=== PATIENT | male | born 1980 | race Caucasian/White ===

== ENCOUNTER 2019-02-04 08:39 | Day surgery (SDC) | payer OTHER ==
[~2019-02-04] VITALS: Ht 180.3 cm; Wt 88.5 kg
[2019-02-04 08:54] VITALS: BP 129/91; PULSE 80; TEMP 98
[2019-02-04] MEDS ORDERED: PENTASA250 MG PO (09:25)
[2019-02-04] MEDS ORDERED: TYLENOL 500MG500 MG PO (09:26)
[2019-02-04 10:28] VITALS: BP 107/77; PULSE 71; TEMP 97.9
--- NOTE | 2019-02-04 10:28 | NUR ---
Patient brought back to [facility]. Alert and oriented. Vital signs obtained, WNL. States he would like soda and crackers at this time. and kids at bedside. Denies any pain or nausea. Call rios within reach, will conitnue to monitor.
[2019-02-04 10:43] VITALS: BP 114/79; PULSE 74
[2019-02-04 10:58] VITALS: BP 117/78; PULSE 65
--- NOTE | 2019-02-04 11:10 | NUR ---
Patient brought down to lobby via wheelchair. to drive patient home.
--- NOTE | 2019-02-04 11:16 | NUR ---
Patient states he is ready to go home. Denies any nausea or pain. Vital signs stable. Tolerated food and drink well. Discharge instructions reviewed with patient and , all questions answered.
== END 2019-02-04 11:10 | disposition home or self-care (01) ==
LOC: SDCO 08:39
DX: K56.600 Partial intestinal obstruction, unspecified as to cause (principal); K52.9 Noninfective gastroenteritis and colitis, unspecified; K50.80 Crohn's disease of both small and large intestine without complications
CPT/HCPCS: J2250; J3010; J7030

== ENCOUNTER → 2019-02-21 | Outpatient (CLI) | payer OTHER ==
[~2019-02-21] MED LIST: PENTASA250 MG PO; TYLENOL 500MG500 MG PO
== END ==
LOC: COL.RAD 07:43
DX: K92.89 Other specified diseases of the digestive system (principal); K50.90 Crohn's disease, unspecified, without complications
CPT/HCPCS: A9585

== ENCOUNTER 2019-08-26 09:30 | Day surgery (SDC) | payer OTHER ==
[~2019-08-26] VITALS: Ht 180.3 cm; Wt 89.7 kg
[2019-08-26 10:08] VITALS: BP 117/84; PULSE 61; TEMP 98
[2019-08-26] MEDS ORDERED: HUMIRA40 MG/0.4 SQ (10:10)
[2019-08-26] MEDS ORDERED: PENTASA500 MG PO (10:10)
[2019-08-26 11:35] VITALS: BP 106/76; PULSE 58; TEMP 97.8
--- NOTE | 2019-08-26 11:35 | NUR ---
TO RM 5 PER CART FROM ENDOSCOPY. ALERT ORIENTED X3, TALKING TO AND STAFF. AMBULATED TO RECLINER WITH ASSIST AND TOLERATED WELL.
[2019-08-26 11:50] VITALS: BP 105/75; PULSE 64
--- NOTE | 2019-08-26 11:50 | NUR ---
RECEIVED APPLE JUICE.
[2019-08-26 12:05] VITALS: BP 112/77; PULSE 58
--- NOTE | 2019-08-26 12:05 | NUR ---
DISCONTINUED IV AND INT- CATHETER INTACT PATIENT GETTING DRESSED AND WAITING FOR DR LAROSE
--- NOTE | 2019-08-26 12:40 | NUR ---
DR LAROSE INTO TALK WITH PATIENT AND HIS .
--- NOTE | 2019-08-26 12:47 | NUR ---
RECEIVED DISCHARGE INSTRUCTIONS AND VERBALIZED UNDERSTANDING.
--- NOTE | 2019-08-26 12:55 | NUR ---
DISCHARGED PER WC BY NURSING STAFF TO PRIVATE CAR IN CARE OF .
== END 2019-08-26 13:00 | disposition home or self-care (01) ==
LOC: SDCO 09:30
DX: K50.80 Crohn's disease of both small and large intestine without complications (principal); Z79.899 Other long term (current) drug therapy
CPT/HCPCS: J2250; J3010; J7030